=== PATIENT | female | born 1945 | race Caucasian/White ===

== ENCOUNTER 2017-01-14 13:02 | Emergency (ER) | payer MEDICARE, OTHER ==
[~2017-01-14] VITALS: Ht 152.4 cm; Wt 77.6 kg
[~2017-01-14 13:02] MED LIST: ATOR40TA PO; LISI-360 PO; PANT40IN3 PO
[2017-01-14 13:12] VITALS: BP 149/92; PULSE 83; RESP 16; TEMP 97.3; O2SAT 95
[2017-01-14 14:49] VITALS: BP 149/92; PULSE 83; RESP 16; TEMP 97.3; O2SAT 95
[2017-01-14] MEDS ORDERED: ATOR40TA16 PO (14:52)
[2017-01-14] MEDS ORDERED: PANT40TA3 PO (14:52)
[2017-01-14] MEDS ORDERED: LISI10TA3 PO (14:52)
[2017-01-14] MEDS ORDERED: ACET250T3 PO (15:32)
--- NOTE | 2017-01-14 15:38 | PD ---
HPI Chief Complaint: Dizziness Time Seen by Provider: 14:52 Travel History International Travel<30 days: No Contact w/Intl Traveler<30days: No Traveled to known affect area: No History of Present Illness HPI This patient has history of Mnire's disease. She gets occasional attacks of vertigo. She used to take Diamox which helped prevent her vertigo attacks. She would like to get back on it. She no longer sees her ENT physician who prescribed it. She is requesting a prescription for it. She denies headache or head injury. She has a room spinning vertigo-like sensation which is typical of her prior attacks. She says the meclizine never helped and she does not want any meclizine. Symptoms severity is moderate PFSH Past Medical History Hx Anticoagulant Therapy: No Heart Rhythm Problems: No Cardiovascular Problems: Yes (HTN, CHOL) High Cholesterol: Yes (and fam hx ) Congestive Heart Failure: No Diabetes: No Diminished Hearing: No GERD: Yes Hypertension: Yes Medical other: Yes (HARIS'S DX) Tetanus Vaccination: Unknown ?: Not Menopausal: Yes Past Surgical History Gynecologic Surgery: Yes (LT OVARY REMOVED ) Social History Alcohol Use: No Tobacco Use: Yes (10/26 PPD) Substance Use: No Allergies-Medications (Allergen,Severity, Reaction): Coded Allergies: Epinephrine (Verified Allergy, Intermediate, Tachycardia, 01/14/17) Reported Meds & Prescriptions Reported Meds & Active Scripts Active Acetazolamide 250 Mg Tab 250 Mg PO DAILY Reported Pantoprazole (Pantoprazole Sodium) 40 Mg Tab 40 Mg PO DAILY Lisinopril 10 Mg Tab 10 Mg PO DAILY Atorvastatin (Atorvastatin Calcium) 40 Mg Tab 40 Mg PO HS Review of Systems General / Constitutional: No: Fever HENT: Positive: Vertigo, No: Headaches Cardiovascular: No: Chest Pain or Discomfort Physical Exam Narrative GENERAL: Well-nourished, well-developed patient in no apparent distress. SKIN: Warm and dry. HEAD: Atraumatic. Normocephalic. EYES: Pupils equal and round. No scleral icterus. No injection or drainage. ENT: No nasal bleeding or discharge. Mucous membranes pink and moist. NECK: Trachea midline. No JVD. CARDIOVASCULAR: Regular rate and rhythm. No murmur appreciated. RESPIRATORY: No accessory muscle use. Clear to auscultation. Breath sounds equal bilaterally. GASTROINTESTINAL: Abdomen soft, non-tender, nondistended. Hepatic and splenic margins not palpable. MUSCULOSKELETAL: No obvious deformities. No clubbing. No cyanosis. No edema. NEUROLOGICAL: Awake and alert. No obvious cranial nerve deficits. Motor grossly within normal limits. Normal speech. PSYCHIATRIC: Appropriate mood and affect; insight and judgment normal. Data Data Last Documented VS Vital Signs Date Time Temp Pulse Resp B/P Pulse Ox O2 Delivery O2 Flow Rate FiO2 01/14/17 14:49 97.3 83 16 149/92 95 01/14/17 14:44 Room Air MDM Medical Decision Making Medical Screen Exam Complete: Yes Emergency Medical Condition: Yes Medical Record Reviewed: Yes Differential Diagnosis Vertigo, Mnire's, labyrinthitis Narrative Course I have reviewed the patient's electronic medical record. Was here for vertigo in 2010 Patient is neurologically intact. She is having a flare of something she's had multiple times before. I did write her a prescription for Acetazolamide 250 mg twice a day, 15 days worth She should get a follow-up with her physician and discuss whether they think she should continue that or not Diagnosis Primary Impression: Positional vertigo Qualified Code: H81.10 - Positional vertigo, unspecified laterality Departure Forms: Tests/Procedures Additional Instructions: Follow-up with primary care and ENT Med/Other Pt SpecificInfo: Prescription(s) given Scripts Acetazolamide 250 Mg [id number] Mg PO DAILY #30 TAB Ref 0 Prov:Carmine Dwyer MD 01/14/17 Disposition: 01 DISCHARGE HOME Condition: Stable Carmine Dwyer MD Jan 14, 2017 15:38
== END 2017-01-14 15:47 | disposition home or self-care (01) ==
LOC: PHED 13:02
DX: H81.10 Benign paroxysmal vertigo, unspecified ear (principal)
CPT/HCPCS: 99283

== ENCOUNTER 2017-07-20 22:14 | Emergency (ER) | payer OTHER ==
[~2017-07-20] VITALS: Ht 154.9 cm; Wt 75.0 kg
[~2017-07-20 22:14] MED LIST changes: +ACET250T3 PO; -ATOR40TA PO; +ATOR40TA16 PO; -LISI-360 PO; +LISI10TA3 PO; -PANT40IN3 PO; +PANT40TA3 PO
[2017-07-20 22:25] VITALS: BP 172/81; PULSE 81; RESP 20; TEMP 98.2; O2SAT 96
--- NOTE | 2017-07-20 23:16 | PD ---
HPI Chief Complaint: Headache Time Seen by Provider: 22:46 Travel History International Travel<30 days: No Contact w/Intl Traveler<30days: No Traveled to known affect area: No History of Present Illness HPI The patient is a 71 year old female who presents to the [facility] emergency department with a history of looking at her computer prior to arrival when she stood up and began to have a headache along the posterior base of the skull and a sensation of neck pressure. The patient denies having any neck stiffness. She reports that the headache began to gradually worsen with time. She reports that it started at approximately 8 PM area and she reports that she took Tylenol without any relief. She denies ever having a headache like this previously. She reports that the headache has extended into the top of her head and also is causing pressure in her face. She does report that over the last month she's had increased postnasal drip and sinus congestion. She denies having any fevers or chills. She denies having any chest congestion or cough other than related to postnasal drip. The patient reports that the pain is 3 out of 10 in severity. She reports that she feels like her vision is unfocused and she is having difficulty concentrating. She called ambulance services and was noted to have a systolic blood pressure of 220. She was then transported to this facility for evaluation and treatment. She denies having any prior history of stroke symptoms, however she reports that she recently had an MRI proximally 6 months ago related to persistent vertigo and Mnire's disease. She was noted to have a meningioma that had not been changing and 2 prior areas of stroke that she denies having any symptoms related to. On review of systems otherwise, the patient denies having any chest pain, shortness of breath, abdominal pain, vomiting, diarrhea, urinary symptoms, or neurologic symptoms. The patient reports that she does have some nausea with the headache. She denies having any sensitivity to light or sound. [facility] Past Medical History Narrative Medical The patient's past medical history is significant for gastroesophageal reflux disease, hypertension, history of a meningioma the brain, history per medics fever is a 3-year-old, history of a heart murmur, hyperlipidemia, tobacco abuse. Hx Anticoagulant Therapy: No Heart Rhythm Problems: No Cardiovascular Problems: Yes (HTN, CHOL) High Cholesterol: Yes (and fam hx ) Congestive Heart Failure: No Diabetes: No Diminished Hearing: No GERD: Yes Hypertension: Yes Immunizations Current: Yes Tetanus Vaccination: Unknown Influenza Vaccination: Yes Menopausal: Yes Past Surgical History Narrative Surgical The patient's past surgical history is significant for a left ovary resection. Gynecologic Surgery: Yes (LT OVARY REMOVED ) Social History Alcohol Use: No Tobacco Use: Yes (10/26 PPD) Substance Use: No Allergies-Medications (Allergen,Severity, Reaction): Coded Allergies: epinephrine (Unverified Allergy, Intermediate, Tachycardia, 07/20/17) Reported Meds & Prescriptions Reported Meds & Active Scripts Active Acetazolamide 250 Mg Tab 250 Mg PO DAILY Reported Pantoprazole (Pantoprazole Sodium) 40 Mg Tab 40 Mg PO DAILY Lisinopril 10 Mg Tab 10 Mg PO DAILY Atorvastatin (Atorvastatin Calcium) 40 Mg Tab 40 Mg PO HS Review of Systems Except as stated in HPI: all other systems reviewed are Neg General / Constitutional: No: Fever Eyes: No: Visual changes HENT: Positive: Headaches, Rhinorrhea, Congestion, Neck Pain, No: Neck Stiffness Cardiovascular: No: Chest Pain or Discomfort Respiratory: Positive: Cough (related to postnasal drip), No: Shortness of Breath Gastrointestinal: Positive: Nausea, No: Vomiting, Diarrhea, Abdominal Pain Genitourinary: No: Dysuria Musculoskeletal: No: Pain Skin: No Rash Neurologic: No: Weakness, Focal Abnormalities, Change in Mentation, Slurred Speech, Sensory Disturbance Psychiatric: No: Depression Endocrine: No: Polydipsia Hematologic/Lymphatic: No: Easy Bruising Physical Exam Narrative General: The patient is a well-developed well-nourished female in no acute distress. Head and Neck exam: Head is normocephalic atraumatic. Eyes: EOMI, pupils are equal round and reactive to light. Sinuses: No sinus tenderness on palpation. Nose: Midline septum with pink mucous membranes Mouth: Dentition unremarkable. Moist mucus membranes. Posterior oropharynx is not erythematous. No tonsillar hypertrophy. Uvula midline. Airway patent. Neck: No palpable lymphadenopathy. No nuchal rigidity. No thyromegaly. Negative Brudzinski, negative Kernig sign. Cardiovascular: Regular rate and rhythm without murmurs, gallops, or rubs. No pulse deficit to the extremities. Lungs: Clear to auscultation bilaterally. No wheezes, rhonchi, or rales. Abdomen: Soft, without tenderness to palpation in all 4 quadrants of the abdomen. No guarding, rebound, or rigidity. Negative [place] sign. Extremities: No clubbing, cyanosis, or edema. 2+ pulses in all 4 extremities. Back: No spinous process tenderness to palpation. No costovertebral angle tenderness to palpation. Neurologic Exam: Cranial nerves 2-12 were intact on exam. Strength is 5/5 in all 4 extremities. No sensory deficits noted. No dysdiadochokinesis. Good finger to nose and Heel to crabtree bilaterally. Skin Exam: No rash noted. Intact skin that is warm and dry. Data Data Last Documented VS Vital Signs Date Time Temp Pulse Resp B/P (MAP) Pulse Ox O2 Delivery O2 Flow Rate FiO2 07/20/17 23:23 20 98 Nasal Cannula 2.00 07/20/17 22:25 98.2 81 172/81 (111) Orders Orders Electrocardiogram (07/20/17 23:04) Complete Blood Count With Diff (07/20/17 23:04) Comprehensive Metabolic Panel (07/20/17 23:04) Troponin I (07/20/17 23:04) Prothrombin Time / Inr (Pt) (07/20/17 23:04) Act Partial Throm Time (Ptt) (07/20/17 23:04) Urinalysis - C+S If Indicated (07/20/17 23:04) Magnesium (Mg) (07/20/17 23:04) Ct Brain W/O Iv Contrast(Rout) (07/20/17 23:04) Iv Access Insert/Monitor (07/20/17 23:04) Ecg Monitoring (07/20/17 23:04) Oximetry (07/20/17 23:04) Urine Culture (07/20/17 23:10) Ceftriaxone Inj (Rocephin Inj) (07/21/17 00:15) Morphine Inj (Morphine Inj) (07/21/17 00:15) Ondansetron Inj (Zofran Inj) (07/21/17 00:15) Labs Laboratory Tests Test 07/20/17 23:10 White Blood Count 8.2 TH/MM3 Red Blood Count 4.39 MIL/MM3 Hemoglobin 12.9 GM/DL Hematocrit 38.7 % Mean Corpuscular Volume 88.1 FL Mean Corpuscular Hemoglobin 29.3 PG Mean Corpuscular Hemoglobin Concent 33.3 % Red Cell Distribution Width 13.9 % Platelet Count 208 TH/MM3 Mean Platelet Volume 9.3 FL Neutrophils (%) (Auto) 70.9 % Lymphocytes (%) (Auto) 19.3 % Monocytes (%) (Auto) 6.9 % Eosinophils (%) (Auto) 2.5 % Basophils (%) (Auto) 0.4 % Neutrophils # (Auto) 5.8 TH/MM3 Lymphocytes # (Auto) 1.6 TH/MM3 Monocytes # (Auto) 0.6 TH/MM3 Eosinophils # (Auto) 0.2 TH/MM3 Basophils # (Auto) 0.0 TH/MM3 CBC Comment DIFF FINAL Differential Comment Prothrombin Time 9.9 SEC Prothromb Time International Ratio 0.9 RATIO Activated Partial Thromboplast Time 26.5 SEC Urine Color LIGHT-YELLOW Urine Turbidity HAZY Urine pH 5.5 Urine Specific [place] 1.011 Urine Protein TRACE mg/dL Urine Glucose (UA) NEG mg/dL Urine Ketones NEG mg/dL Urine Occult Blood NEG Urine Nitrite POS Urine Bilirubin NEG Urine Urobilinogen LESS THAN 2.0 MG/DL Urine Leukocyte Esterase MOD Urine RBC 1 /hpf Urine WBC 3 /hpf Urine Squamous Epithelial Cells 1 /hpf Urine Bacteria MANY /hpf Microscopic Urinalysis Comment CULTURE INDICATED Blood Urea Nitrogen 17 MG/DL Creatinine 0.95 MG/DL Random Glucose 101 MG/DL Total Protein 7.6 GM/DL Albumin 3.7 GM/DL Calcium Level 8.9 MG/DL Magnesium Level 2.3 MG/DL Alkaline Phosphatase 96 U/L Aspartate Amino Transf (AST/SGOT) 16 U/L Alanine Aminotransferase (ALT/SGPT) 18 U/L Total Bilirubin 0.4 MG/DL Sodium Level 140 MEQ/L Potassium Level 3.9 MEQ/L Chloride Level 103 MEQ/L Carbon Dioxide Level 29.3 MEQ/L Anion Gap 8 MEQ/L Estimat Glomerular Filtration Rate 58 ML/MIN Troponin I LESS THAN 0.02 NG/ML [facility] Medical Decision Making Medical Screen Exam Complete: Yes Emergency Medical Condition: Yes Medical Record Reviewed: Yes Interpretation(s) Last Impressions Head CT 07/20/17 9518 Signed Impressions: Service Date/Time: Thursday, July 20, 2017 23:52 - CONCLUSION: Normal examination. Chepe Bolton MD Differential Diagnosis Intracranial hemorrhage, versus tension headache, versus hypertension induced headache, versus sinusitis, versus intracranial mass Narrative Course During the course of the patients emergency department visit, the patients history, examination, and differential diagnosis were reviewed with the patient. The patient had IV access obtained and blood work sent for analysis. The patient was placed on a cardiac monitor technician with oximetry and blood pressure monitoring. The patient was initially provided morphine 2,000,000 g IV for pain, Zofran 4 mg IV for nausea. The patients laboratory studies were reviewed and remarkable for a white count of 8.2, hemoglobin 12.9, platelets 208 with neutrophils 70.9, CMP is remarkable for GFR 58, troponin I less than 0.02, PT PTT within normal limits, urinalysis shows a positive nitrite and moderate leukocyte esterase, many bacteria. The patient was given Rocephin 1 g IV. Radiology studies were reviewed and remarkable for a CT scan of the brain that shows no acute abnormality. The patient on reexamination at approximately 1:40 AM has had resolution of her hypertension with a systolic blood pressure 137. The patient is resting comfortably and feels improved. The patient will be discharged home with a prescription for Bactrim to be completed over the next week. She is instructed on the importance of close follow-up with her primary care physician for reexamination in the next 2 days. The patient is resting comfortably and feels better, is alert and in no distress. The patients results and examination findings were discussed with the patient. The repeat examination is unremarkable and benign. The history, exam, diagnostic testing, and current condition do not suggest any significant pathology to warrant further testing, continued ED treatment, admission, or surgical evaluation at this point. The vital signs have been stable. The patient does not have uncontrollable pain, intractable vomiting, or other significant symptoms. The patient's condition is stable and appropriate for discharge. The patient will pursue further outpatient evaluation with a primary care physician or other designated or consulting physician as indicated in the discharge instructions. The patient expressed understanding and was agreeable with this plan. Diagnosis Primary Impression: Headache Qualified Codes: R51 - Headache Additional Impressions: Hypertension Qualified Codes: I10 - Essential (primary) hypertension Urinary tract infection Qualified Codes: N39.0 - Urinary tract infection, site not specified Referrals: Primary Care Physician 2 days Patient Instructions: Acute Headache (ED), General Instructions, Hypertension ( ED), Urinary Tract Infection in Women (ED) Med/Other Pt SpecificInfo: Prescription(s) given Disposition: 01 DISCHARGE HOME Condition: Stable Hiral Lewis MD Jul 20, 2017 23:16
[2017-07-20 23:22] LABS: AUTOMATED NEUTROPHIL # 5.8 TH/MM3 (1.8-7.7); BASOPHIL % 0.4 % (0.0-2.0); EOSINOPHIL # 0.2 TH/MM3 (0-0.4); EOSINOPHIL % 2.5 % (0.0-4.0); HEMATOCRIT 38.7 % (35.0-46.0); HEMO FLAGS DIFF FINAL; LYMPH % 19.3 % (9.0-44.0); LYMPHOCYTE # 1.6 TH/MM3 (1.0-4.8); MEAN CELL VOLUME 88.1 FL (80.0-100.0); MEAN CORPUSCULAR HEMOGLOBIN 29.3 PG (27.0-34.0); MEAN CORPUSCULAR HGB CONC 33.3 % (32.0-36.0); MONO % 6.9 % (0.0-8.0); NEUT % 70.9 % (16.0-70.0); PLATELET COUNT 208 TH/MM3 (150-450); RED BLOOD COUNT 4.39 MIL/MM3 (4.00-5.30); RED CELL DISTRIBUTION WIDTH 13.9 % (11.6-17.2); WHITE BLOOD COUNT 8.2 TH/MM3 (4.0-11.0)
[2017-07-20 23:23] VITALS: RESP 20; O2SAT 98
[2017-07-20 23:30] LABS: BACTERIA, URINE MANY /hpf; BLOOD, URINE NEG (NEG); COMMENT (UR) CULTURE INDICATED; CULTURE IF INDICATED CULTURE INDICATED; GLUCOSE,URINE NEG (NEG); KETONE, URINE NEG (NEG); NITRITE,URINE POS (NEG); PH, URINE 5.5 (5.0-8.5); SQUAMOUS EPITHELIAL CELL URINE 1 /hpf (0-5); URINE COLOR LIGHT-YELLOW (YELLW/STRAW)
[2017-07-20 23:32] LABS: APTT (PATIENT) 26.5 SEC (24.3-30.1); INTERNATIONAL NORMALIZED RATIO 0.9 RATIO; PROTHROMBIN TIME - PATIENT 9.9 SEC (9.8-11.6)
[2017-07-20 23:38] LABS: ALT (GPT) 18 U/L (10-53); ANION GAP 8 MEQ/L (5-15); AST (GOT) 16 U/L (15-37); BICARBONATE 29.3 MEQ/L (21.0-32.0); BLOOD UREA NITROGEN 17 MG/DL (7-18); CHLORIDE 103 MEQ/L (98-107); GLOMERULAR FILTRATION RATE 58 ML/MIN (>89); MAGNESIUM 2.3 MG/DL (1.5-2.5); POTASSIUM 3.9 MEQ/L (3.5-5.1); SODIUM (NA) 140 MEQ/L (136-145)
[2017-07-20 23:42] LABS: ALKALINE PHOSPHATASE 96 U/L (45-117); TOTAL BILIRUBIN ADULT 0.4 MG/DL (0.2-1.0)
[2017-07-21] MEDS ORDERED: cefTRIAXone INJ 1,000 MG in SODIUM CHLORIDE 0.9% INJ 100 ML IV ONE (00:15)
[2017-07-21] MEDS ORDERED: MORPHINE SULFATE 4 MG/ML INJ IV PUSH ONE (00:15)
[2017-07-21] MEDS ORDERED: ONDANSETRON HCL 4 MG/2 ML VIAL IV PUSH ONE (00:15)
--- NOTE | 2017-07-21 00:55 | RADRPT ---
EXAM DATE/TIME: 07/20/2017 23:52 [facility] COMPARISON: No previous studies available for comparison. INDICATIONS : Headaches and dizziness. RADIATION DOSE: 36.25 CTDIvol (mGy) MEDICAL HISTORY : Hypertension. Cardiovascular disease Gastroesophageal reflux disease. SURGICAL HISTORY : Left oophorectomy ENCOUNTER: Initial ACUITY: 2 days PAIN SCALE: 4/10 LOCATION: cranial TECHNIQUE: Multiple contiguous axial images were obtained of the head. Using automated exposure control and adj ustment of the mA and/or kV according to patient size, radiation dose was kept as low as reasonably a chievable to obtain optimal diagnostic quality images. DICOM format image data is available electro nically for review and comparison. FINDINGS: CEREBRUM: The ventricles are normal for age. No evidence of midline shift, mass lesion, hemorrhage or acute in farction. No extra-axial fluid collections are seen. POSTERIOR FOSSA: The cerebellum and brainstem are intact. The 4th ventricle is midline. The cerebellopontine angle i s unremarkable. EXTRACRANIAL: The visualized portion of the orbits is intact. SKULL: The calvaria is intact. No evidence of skull fracture. CONCLUSION: Normal examination. Chepe Bolton MD on July 21, 2017 at 0:52 Board Certified Radiologist. This report was verified electronically.
[2017-07-21 01:42] VITALS: BP 136/71; PULSE 79; RESP 18; O2SAT 98
--- NOTE | 2017-07-21 14:51 | EKG ---
Date Performed: 07/20/2017 Time Performed: 23:20:36 PTAGE: 71 years EKG: Sinus rhythm POSSIBLE LEFT ATRIAL ENLARGEMENT BORDERLINE ECG PREVIOUS TRACING : 07/02/2016 02.40 Compared to prior tracing no significant change DOCTOR: Imtiaz Contreras Interpretating Date/Time 07/21/2017 14:51:02
== END 2017-07-21 02:20 | disposition home or self-care (01) ==
LOC: NEPE 22:14
DX: R51 Headache (principal); I10 Essential (primary) hypertension; N39.0 Urinary tract infection, site not specified; B96.1 Klebsiella pneumoniae [K. pneumoniae] as the cause of diseases classified elsewhere; E78.00 Pure hypercholesterolemia, unspecified
CPT/HCPCS: 70450; 80053; 81001; 83735; 84484; 85025; 85610; 85730; 87077; 87086; 87186; 93005; 96374; 96375; 99285; J0696; J2405